=== PATIENT | female | born 2000 | race Caucasian/White ===

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

== ENCOUNTER 2022-01-18 08:16 | Observation (INO) | payer MEDICAID ==
[~2022-01-18] VITALS: Ht 160 cm; Wt 71.9 kg
[2022-01-18] VITALS (11 sets, daily range): BP systolic 108–134; BP diastolic 54–78
[~2022-01-18 08:16] MED LIST changes: +ACET-168 PO; +HYDR-3584 PO
[2022-01-18 10:06] LABS: BASOPHILS # (AUTO) 0.1 10^3/uL (0.0-0.1); BASOPHILS % (AUTO) 0 % (0-10); EOSINOPHILS # (AUTO) 0.1 10^3/uL (0.0-0.3); EOSINOPHILS % (AUTO) 1 % (0-10); HEMATOCRIT 31 % (35-52); HEMOGLOBIN 10.4 g/dL (11.5-16.0); LYMPHOCYTES # (AUTO) 1.7 10^3/uL (1.0-4.0); LYMPHOCYTES % (AUTO) 11 % (12-44); MEAN CORPUSCULAR HEMOGLOBIN 30 pg (25-34); MEAN CORPUSCULAR HGB CONC 34 g/dL (32-36); MEAN CORPUSCULAR VOLUME 89 fL (80-99); MEAN PLATELET VOLUME 11.5 fL (9.0-12.2); MONOCYTES # (AUTO) 0.7 10^3/uL (0.0-1.0); MONOCYTES % (AUTO) 5 % (0-12); NEUTROPHILS # (AUTO) 12.9 10^3/uL (1.8-7.8); NEUTROPHILS % (AUTO) 83 % (42-75); PLATELET COUNT 148 10^3/uL (130-400); WHITE BLOOD COUNT 15.6 10^3/uL (4.3-11.0)
[2022-01-18 10:29] LABS: NEUTROPHILS % (MANUAL) 78 %
[2022-01-18 10:30] LABS: BAND NEUTROPHILS 2 %; BASOPHILS % (MANUAL) 0 %; EOSINOPHILS % (MANUAL) 0 %; LYMPHOCYTES % (MANUAL) 12 %; MONOCYTES % (MANUAL) 8 %
[2022-01-18 10:31] LABS: BILIRUBIN,URINE NEGATIVE (NEGATIVE); CLARITY,URINE CLEAR; COLOR,URINE YELLOW; GLUCOSE, URINE (UA) NEGATIVE (NEGATIVE); KETONES,URINE NEGATIVE (NEGATIVE); LEUKOCYTE ESTERASE ,URINE TRACE (NEGATIVE); NITRITE,URINE NEGATIVE (NEGATIVE); PROTEIN,URINE NEGATIVE (NEGATIVE)
[2022-01-18 10:31] LABS: RBC MORPH NORMAL
[2022-01-18 10:42] LABS: BACTERIA,URINE FEW /HPF; WBC,URINE 0-2 /HPF
[2022-01-18] MEDS ORDERED: BUTORPHANOL INJ 2 MG/ML (STADOL) VIAL IV ONE (11:45)
[2022-01-18] MEDS: D5 LR IV SOLUTION 1,000 ML IV SCH ×3 (12:09→21:16)
--- NOTE | 2022-01-18 16:45 | Diagnostic Imaging Report ---
PROCEDURE: US Renal Bilateral. TECHNIQUE: Multiple real-time grayscale images were obtained over the kidneys in various projections bilaterally. INDICATION: Right-sided abdominal pain. Right kidney measures 11.7 x 4.4 x 4.7 cm and the left kidney measures 11.6 x 5.3 x 4.9 cm. Cortical thickness and echogenicity is normal. There is some mild hydronephrosis of the right kidney but no calculi are seen. Left kidney is unremarkable. Bilateral ureteral jets are visualized. IMPRESSION: Mild right-sided hydronephrosis which could be secondary to hydronephrosis of . No other abnormality is seen. Dictated by: Dictated on workstation # [id number]
--- NOTE | 2022-01-18 16:46 | Diagnostic Imaging Report ---
INDICATION: Evaluate placenta. There is a single live fetus in a cephalic presentation. heart rate was recorded at 165 bpm. Placenta is posterior and appears within normal limits. No previa is identified. Amniotic fluid index is 16.7 cm. IMPRESSION: Unremarkable limited obstetrical ultrasound. Dictated by: Dictated on workstation # [id number]
[2022-01-18] MEDS ORDERED: CITRIC ACID/SOB CIT (BICITRA) 30 ML UDC PO ONE (17:15)
[2022-01-18] MEDS ORDERED: oxyCODONE/APAP 5/325MG (PERCOCET 5) TABLET PO ONE (17:45)
--- NOTE | 2022-01-18 18:49 | History & Physical ---
History and Physical Date Seen by Provider: Jan 18, 2022 Time Seen by Provider: 17:15 This patient is a 21-year-old multigravid female currently at 33 weeks gestation who was admitted with complaint of contractions and right-sided pain. She also complains of low back pain and the pain in the groins. She denies rupture membranes or bleeding. She notes that she has had nausea with no emesis. Patient reports that the pain started early this morning. She has had some pain similar over the last couple days but it got more severe today. She relates that she has had nausea but no emesis. She denies diarrhea or constipation. She denies dysuria or urinary frequency. She had tried Tylenol with no signifi cant relief in her pain. Patient relates that she did not have pain like this with her previous . She reports that the pain is primarily from the umbilicus to the right upper quadrant. She is tender in the right upper quadrant she is tender near the umbilicus and she is tender at the liver edge the tenderness is superficial and easily reproduced on palpation. Patient has no psoas sign. She has no obturator sign. She has no guarding rebound or rigidity. Patient expressed specific concern about appendicitis based on signs symptoms and findings from a friend who apparently had appendicitis. They are specifically requesting general surgery consult and an MRI for evaluation of the appendix. The time that I asked evaluate the patient she does not look to be in acute distress she is tender on palpation in the right upper quadrant. Again there is no psoas sign or obturator sign there is no guarding rebound or rigidity. The patient reports pain primarily along the distribution of the ligamentum teres.. She reports that at times she has pain in the groins extending down to the thighs but that has started since she has been confined to the labor and delivery bed which she reports is uncomfortable as well. That is not correlated with or associated with the right-sided pain but brought the patient in. She was rosalind on admission with a negative swallow evaluation after IV fluids and a single dose of Stadol the contractions have resolved. The Stadol improved her pain somewhat but did not make it resolved. She has been given a dose of Bicitra due to her history of reflux. She reports that that did not stop her pain or affect the pain either. She has been given a Percocet 08/24/2024 and she reports that that has not allowed any improvement in her pain. Again she relates that when she is up her pain is worse when she ambulates to the bathroom her pain is worse when she is back in bed the pain improves. Allergies are none Medications are vitamins Medical social and surgical histories are per her antepartum record HEENT exam is normal Neck is supple no lymphadenopathy no thyromegaly Abdomen is gravid it is soft it is tender in the right upper quadrant and along the distribution of the ligamentum teres from the patient's umbilicus to the li elvin edge. The pain is superficial and is not associated with rebound guarding or rigidity. Pelvic exam has shown a cervix that is not changing over time for the admitting nurse. monitor shows a category 1 heart rate tracing with episodes of occasional contractions that have spaced out since IV hydration and admission. Ultrasound report is reviewed and is consistent with physiologic changes in including a slightly dilated right ureter. We plan to repeat the ultrasound tomorrow to assess for further dilation. Lab work is as follows Laboratory Tests Test 01/18/22 08:30 01/18/22 09:59 Range/Units Urine Color YELLOW Urine Clarity CLEAR Urine pH 7.0 5-9 Urine Specific [place] 1.015 L 1.016-1.022 Urine Protein NEGATIVE NEGATIVE Urine Glucose (UA) NEGATIVE NEGATIVE Urine Ketones NEGATIVE NEGATIVE Urine Nitrite NEGATIVE NEGATIVE Urine Bilirubin NEGATIVE NEGATIVE Urine Urobilinogen 0.2 < = 1.0 MG/DL Urine Leukocyte Esterase TRACE H NEGATIVE Urine RBC (Auto) NEGATIVE NEGATIVE Urine RBC NONE /HPF Urine WBC 0-2 /HPF Urine Squamous Epithelial Cells 5-10 /HPF Urine Crystals NONE /LPF Urine Bacteria FEW H /HPF Urine Casts NONE /LPF Urine Mucus SMALL H /LPF Urine Culture Indicated CULTURE PENDING White Blood Count 15.6 H 4.3-11.0 10^3/uL Red Blood Count 3.47 L 3.80-5.11 10^6/uL Hemoglobin 10.4 L 11.5-16.0 g/dL Hematocrit 31 L 35-52 % Mean Corpuscular Volume 89 80-99 fL Mean Corpuscular Hemoglobin 30 25-34 pg Mean Corpuscular Hemoglobin Concent 34 32-36 g/dL Red Cell Distribution Width 12.3 10.0-14.5 % Platelet Count 148 130-400 10^3/uL Mean Platelet Volume 11.5 9.0-12.2 fL Immature Granulocyte % (Auto) 1 % Neutrophils (%) (Auto) 83 H 42-75 % Lymphocytes (%) (Auto) 11 L 12-44 % Monocytes (%) (Auto) 5 0-12 % Eosinophils (%) (Auto) 1 0-10 % Basophils (%) (Auto) 0 0-10 % Neutrophils # (Auto) 12.9 H 1.8-7.8 10^3/uL Lymphocytes # (Auto) 1.7 1.0-4.0 10^3/uL Monocytes # (Auto) 0.7 0.0-1.0 10^3/uL Eosinophils # (Auto) 0.1 0.0-0.3 10^3/uL Basophils # (Auto) 0.1 0.0-0.1 10^3/uL Immature Granulocyte # (Auto) 0.1 0.0-0.1 10^3/uL Neutrophils % (Manual) 78 % Lymphocytes % (Manual) 12 % Monocytes % (Manual) 8 % Eosinophils % (Manual) 0 % Basophils % (Manual) 0 % Band Neutrophils 2 % Blood Morphology Comment NORMAL White blood cell count is noted to be slightly elevated Assessment and plan Abdominal pain in a patient who presented with contractions. The contractions have resolved however the patient's pain is continued. The pain appears to be related to pressure on the right upper quadrant and potentially along the ligamentum teres. Patient is concerned for the appendix to be infected. She does have a low white count although she reports that she is hungry and would like to eat. She is afebrile she has no guarding rebound or rigidity she has no Rovsing sign . We have discussed her concern with appendicitis and while evaluation is ongoing if that should be the case I would suspect and expect that eventually we will discover whether that is the issue. At this point I do not feel compelled to assume that this is an appendicitis. We will repeat the ultrasound and evaluate the dilated right ureter again in the morning. We will repeat a CBC in the morning. We will obtain a CMP to evaluate liver enzymes as well as creatinine for evaluation of kidney function. In the meantime we will continue with IV fluids and allow patient Percocet 10/325 1 or 2 every 4 hours as needed pain. Patient's monitor strip is reassuring we will change to NST every 8 hours barring any change in patient's perception of movement or of her pain. Will allow patient to eat diet as tolerated if she so desires I will stay aware of the patient through the night and we will see her again at the very least in the morning. I would return promptly for any progression in her symptoms or changes that would suggest further evaluation would be warranted immediately labor and abdominal pain at 32 weeks gestation Allergies and Home Medications Allergies Coded Allergies: No Known Drug Allergies (Unverified , 07/28/20) Patient Home Medication List Home Medication List Reviewed: Yes Acetaminophen (Acetaminophen Extra Strength) 500 Mg Tablet, 1,000 MG PO Q8H PRN for PAIN-MILD (1-4), (Reported) Entered as Reported by: ANA ROSSI on 12/18/212050 Hydroxyzine HCl (Hydroxyzine HCl) Unknown Strength Tablet, Unknown Dose PO for ANXIETY, (Reported) Entered as Reported by: ANA ROSSI on 12/18/212049 Vit W-Ca,Fe,FA(<1 mg) ( Formula) 1 Each Tablet, 1 EACH PO DAILY, (Reported) Entered as Reported by: GEE CHANDLER on 09/19/20 1613 LUBA DEVINE MD Jan 18, 2022 18:49
[2022-01-18] MEDS: oxyCODONE/APAP 10/325MG (PERCOCET 10) TABLET PO PRN (19:04)
[2022-01-19 05:15] VITALS: BP 110/58
[2022-01-19] MEDS: oxyCODONE/APAP 10/325MG (PERCOCET 10) TABLET PO PRN (05:16)
[2022-01-19] MEDS: D5 LR IV SOLUTION 1,000 ML IV SCH (05:16)
[2022-01-19 05:46] LABS: EOSINOPHILS % (AUTO) 2 % (0-10); MEAN PLATELET VOLUME 12.2 fL (9.0-12.2)
[2022-01-19 05:47] LABS: BASOPHILS # (AUTO) 0.1 10^3/uL (0.0-0.1); BASOPHILS % (AUTO) 1 % (0-10); EOSINOPHILS # (AUTO) 0.2 10^3/uL (0.0-0.3); HEMATOCRIT 27 % (35-52); HEMOGLOBIN 9.2 g/dL (11.5-16.0); LYMPHOCYTES % (AUTO) 20 % (12-44); MEAN CORPUSCULAR HEMOGLOBIN 30 pg (25-34); MEAN CORPUSCULAR HGB CONC 34 g/dL (32-36); MEAN CORPUSCULAR VOLUME 90 fL (80-99); MONOCYTES # (AUTO) 0.6 10^3/uL (0.0-1.0); MONOCYTES % (AUTO) 6 % (0-12); NEUTROPHILS # (AUTO) 7.1 10^3/uL (1.8-7.8); NEUTROPHILS % (AUTO) 71 % (42-75); PLATELET COUNT 139 10^3/uL (130-400)
[2022-01-19 06:12] LABS: ALBUMIN 2.8 GM/DL (3.2-4.5); BILIRUBIN,TOTAL 0.3 MG/DL (0.1-1.0); CALCIUM 8.4 MG/DL (8.5-10.1); CREATININE SERUM 0.6 MG/DL (0.60-1.30); POTASSIUM 3.5 MMOL/L (3.6-5.0); TOTAL PROTEIN 5.6 GM/DL (6.4-8.2)
[2022-01-19 07:46] VITALS: BP 104/54
[2022-01-19 08:15] VITALS: BP 112/56
--- NOTE | 2022-01-19 08:15 | Progress Note ---
Standard Progress Note Progress Notes/Assess & Plan Date Seen by a Provider: Jan 19, 2022 Time Seen by a Provider: 08:10 Progress/Assessment & Plan This patient is without complaint. She is ambulating, voiding, tolerating oral intake and has almost complete resolution of her pain. Lab work shows white blood Count has dropped to normal. Her creatinine is normal. Liver enzymes are normal. Hemoglobin is appropriate for . Repeat ultrasound shows stability of the right ureter with its physiologic dilation due to . Patient reports that the abdominal pain that had plagued her on admission has essentially resolved. She has some episodes of the pain with ambulation but that would be expected with pain that is related to which is what this appears to be. Plan will be for discharge home with a limited prescription for Percocet for pain control with follow-up in clinic. Vital Signs Date Time Temp Pulse Resp B/P (MAP) Pulse Ox O2 Delivery O2 Flow Rate FiO2 01/19/22 05:15 36.2 110 18 110/58 (75) 97 Room Air 01/18/22 23:30 36.3 122 18 113/60 (77) 97 Room Air 01/18/22 21:08 122 18 115/56 (75) Room Air 01/18/22 21:00 127 18 108/54 (72) Room Air 01/18/22 20:30 118 18 127/61 (83) Room Air 01/18/22 20:00 133 18 134/63 (86) Room Air 01/18/22 19:30 118 18 121/56 (77) Room Air 01/18/22 15:20 39.5 108 18 120/62 (81) Room Air 01/18/22 12:30 102 18 132/65 (87) 97 Room Air 01/18/22 11:30 37.2 100 18 127/78 (94) 98 Room Air 01/18/22 09:11 36.6 99 20 98 Room Air 01/18/22 09:10 36.6 105 20 100 Room Air I & O 01/19/22 07:00 Intake Total 1000 ml Balance 1000 ml Vital signs are stable. Patient is afebrile. Laboratory Tests Test 01/18/22 08:30 01/18/22 09:59 01/19/22 05:10 Range/Units Urine Color YELLOW Urine Clarity CLEAR Urine pH 7.0 5-9 Urine Specific [place] 1.015 L 1.016-1.022 Urine Protein NEGATIVE NEGATIVE Urine Glucose (UA) NEGATIVE NEGATIVE Urine Ketones NEGATIVE NEGATIVE Urine Nitrite NEGATIVE NEGATIVE Urine Bilirubin NEGATIVE NEGATIVE Urine Urobilinogen 0.2 < = 1.0 MG/DL Urine Leukocyte Esterase TRACE H NEGATIVE Urine RBC (Auto) NEGATIVE NEGATIVE Urine RBC NONE /HPF Urine WBC 0-2 /HPF Urine Squamous Epithelial Cells 5-10 /HPF Urine Crystals NONE /LPF Urine Bacteria FEW H /HPF Urine Casts NONE /LPF Urine Mucus SMALL H /LPF Urine Culture Indicated CULTURE PENDING White Blood Count 15.6 H 10.0 4.3-11.0 10^3/uL Red Blood Count 3.47 L 3.05 L 3.80-5.11 10^6/uL Hemoglobin 10.4 L 9.2 L 11.5-16.0 g/dL Hematocrit 31 L 27 L 35-52 % Mean Corpuscular Volume 89 90 80-99 fL Mean Corpuscular Hemoglobin 30 30 25-34 pg Mean Corpuscular Hemoglobin Concent 34 34 32-36 g/dL Red Cell Distribution Width 12.3 12.4 10.0-14.5 % Platelet Count 148 139 130-400 10^3/uL Mean Platelet Volume 11.5 12.2 9.0-12.2 fL Immature Granulocyte % (Auto) 1 1 % Neutrophils (%) (Auto) 83 H 71 42-75 % Lymphocytes (%) (Auto) 11 L 20 12-44 % Monocytes (%) (Auto) 5 6 0-12 % Eosinophils (%) (Auto) 1 2 0-10 % Basophils (%) (Auto) 0 1 0-10 % Neutrophils # (Auto) 12.9 H 7.1 1.8-7.8 10^3/uL Lymphocytes # (Auto) 1.7 2.0 1.0-4.0 10^3/uL Monocytes # (Auto) 0.7 0.6 0.0-1.0 10^3/uL Eosinophils # (Auto) 0.1 0.2 0.0-0.3 10^3/uL Basophils # (Auto) 0.1 0.1 0.0-0.1 10^3/uL Immature Granulocyte # (Auto) 0.1 0.1 0.0-0.1 10^3/uL Neutrophils % (Manual) 78 % Lymphocytes % (Manual) 12 % Monocytes % (Manual) 8 % Eosinophils % (Manual) 0 % Basophils % (Manual) 0 % Band Neutrophils 2 % Blood Morphology Comment NORMAL Percent Immature Platelet Fraction 9.5 H 0.0-7.6 % Sodium Level 138 135-145 MMOL/L Potassium Level 3.5 L 3.6-5.0 MMOL/L Chloride Level 108 H 98-107 MMOL/L Carbon Dioxide Level 18 L 21-32 MMOL/L Anion Gap 12 5-14 MMOL/L Blood Urea Nitrogen 3 L 7-18 MG/DL Creatinine 0.60 0.60-1.30 MG/DL Estimat Glomerular Filtration Rate 133 BUN/Creatinine Ratio 5 Glucose Level 91 70-105 MG/DL Calcium Level 8.4 L 8.5-10.1 MG/DL Corrected Calcium 9.4 8.5-10.1 MG/DL Total Bilirubin 0.3 0.1-1.0 MG/DL Aspartate Amino Transf (AST/SGOT) 10 5-34 U/L Alanine Aminotransferase (ALT/SGPT) 8 0-55 U/L Alkaline Phosphatase 109 40-136 U/L Total Protein 5.6 L 6.4-8.2 GM/DL Albumin 2.8 L 3.2-4.5 GM/DL Smear Scan Lab work is noted and is normal Physical exam The abdomen is gravid soft nontender nondistended. There is no tenderness on palpation in the right upper quadrant or in the balance of the abdomen. Extremities show no clubbing cyanosis. There is no Homans' sign. Repeat ultrasound initial report is that the right ureter is stable balance of the ultrasound was unremarkable Assessment and plan Hospital day 2 in a patient with labor that has resolved. She had acute abdominal pain that seems to be physiologic in nature as it does not appear to be related to kidney stones/infection/ureteral obstruction beyond the physiologic obstruction of . Patient slept well and had good pain control through the night with resolution of her pain. Plan is for discharge home with follow-up in clinic. Final Diagnosis labor at 32 weeks resolved LUBA DEVINE MD Jan 19, 2022 08:15
[2022-01-19] MEDS ORDERED: OXYC1TAB12 PO (08:17)
--- NOTE | 2022-01-19 08:18 | Discharge Inst-Surgical ---
Discharge Inst-Surgical Depart Medication/Instructions New, Converted or Re-Newed RX: Transmitted to Pharmacy Consults/Follow Up Orders & Referrals Return to clinic for OB follow-up as scheduled Return to clinic for recurrence of pain or signs symptoms indications of labor Activity Activity as Tolerated: Yes Diet Discharge Diet: No Restrictions LUBA DEVINE MD Jan 19, 2022 08:18
[2022-01-19 08:30] VITALS: BP 108/55
--- NOTE | 2022-01-19 08:40 | Diagnostic Imaging Report ---
EXAMINATION: US Retroperitoneal Complete. TECHNIQUE: Multiple Real-time grayscale images were obtained over the kidneys in various projections bilaterally. HISTORY: Right-sided abdominal pain. COMPARISON: 01/18/2022. FINDINGS: The right kidney demonstrates normal echogenicity and cortical thickness. The right kidney measures 11.2 x 6.0 x 5.3 cm. There is mild right hydronephrosis. The left kidney demonstrates normal echogenicity and cortical thickness. The left kidney measures 11.3 x 5.5 x 4.7 cm. No hydronephrosis. The urinary bladder is normal. Bilateral ureteral jets are seen. IMPRESSION: Persistent mild right hydronephrosis. Dictated by: Dictated on workstation # [id number]
[2022-01-19 08:45] VITALS: BP 106/51
[2022-01-19 09:00] VITALS: BP 107/57
== END 2022-01-19 09:50 | disposition home or self-care (01) ==
LOC: LDRP 08:16 → WSo 08:55 → EDSTATUS 15:14 → WSo 18:25 → LDRP 18:25 → UNDOADMOB 18:25 → LDRP 18:25 → UNDODISOB 01-19 10:13 → WSo 01-19 10:15
PROVIDERS: ADMIT Obstetrics & Gynecology; ATTEND Obstetrics & Gynecology
DX: O60.03 Preterm labor without delivery, third trimester (principal); Z3A.32 32 weeks gestation of pregnancy
CPT/HCPCS: 76770 ×2; 76815; 80053; 81000; 85007; 85025; 85027; 87088; G0378; G0379; 36415; 96361; 96374

== ENCOUNTER 2022-01-23 11:51 | Observation (INO) | payer MEDICAID ==
[~2022-01-23] VITALS: Ht 160 cm; Wt 71.3 kg
[2022-01-23] VITALS (7 sets, daily range): BP systolic 108–119; BP diastolic 58–69
[~2022-01-23 11:51] MED LIST changes: +OXYC1TAB12 PO
[2022-01-23 12:22] LABS: BILIRUBIN,URINE NEGATIVE (NEGATIVE); CLARITY,URINE CLOUDY; COLOR,URINE YELLOW; GLUCOSE, URINE (UA) NEGATIVE (NEGATIVE); KETONES,URINE TRACE (NEGATIVE); LEUKOCYTE ESTERASE ,URINE 2+ (NEGATIVE); NITRITE,URINE NEGATIVE (NEGATIVE); PROTEIN,URINE 1+ (NEGATIVE)
[2022-01-23] MEDS ORDERED: FLU QUADRIvalent (6 months+) 60 mcg/0.5 ml 2022-23 (Fluzone) IM ONE (12:30)
[2022-01-23 12:44] LABS: BACTERIA,URINE LARGE /HPF; SQUAMOUS EPITHELIAL CELL,UR >50 /HPF; WBC,URINE 50-100 /HPF
[2022-01-23] MEDS ORDERED: D5 LR IV SOLUTION 1,000 ML IV SCH (13:00)
[2022-01-23] MEDS ORDERED: D5 LR IV SOLUTION 1,000 ML IV ONE (13:10)
[2022-01-23 13:33] LABS: BASOPHILS # (AUTO) 0.1 10^3/uL (0.0-0.1); BASOPHILS % (AUTO) 0 % (0-10); EOSINOPHILS # (AUTO) 0.1 10^3/uL (0.0-0.3); EOSINOPHILS % (AUTO) 1 % (0-10); HEMATOCRIT 31 % (35-52); HEMOGLOBIN 10.3 g/dL (11.5-16.0); LYMPHOCYTES # (AUTO) 1.8 10^3/uL (1.0-4.0); LYMPHOCYTES % (AUTO) 13 % (12-44); MEAN CORPUSCULAR HEMOGLOBIN 30 pg (25-34); MEAN CORPUSCULAR HGB CONC 33 g/dL (32-36); MEAN CORPUSCULAR VOLUME 89 fL (80-99); MONOCYTES # (AUTO) 0.6 10^3/uL (0.0-1.0); MONOCYTES % (AUTO) 4 % (0-12); NEUTROPHILS # (AUTO) 10.8 10^3/uL (1.8-7.8); NEUTROPHILS % (AUTO) 81 % (42-75); PLATELET COUNT 148 10^3/uL (130-400); WHITE BLOOD COUNT 13.3 10^3/uL (4.3-11.0)
[2022-01-23] MEDS ORDERED: ONDANSETRON 4 MG/2 ML (SDV) Z0FRAN IVP ONE (13:45)
[2022-01-23 13:54] LABS: ALBUMIN 3.1 GM/DL (3.2-4.5); BILIRUBIN,TOTAL 0.3 MG/DL (0.1-1.0); CALCIUM 8.6 MG/DL (8.5-10.1); CREATININE SERUM 0.61 MG/DL (0.60-1.30); POTASSIUM 3.9 MMOL/L (3.6-5.0); TOTAL PROTEIN 6.3 GM/DL (6.4-8.2)
[2022-01-23] MEDS: ceFAZolin INJECTION 2,000 MG in NS (IVPB) 50 ML IV SCH ×2 (14:14→20:16)
--- NOTE | 2022-01-23 14:41 | History & Physical ---
History and Physical Date Seen by Provider: Jan 23, 2022 Time Seen by Provider: 14:34 This patient is a 21-year-old 2 para 1 female who presents with complaint of nausea and vomiting x2 days diarrhea x2 days contractions times 1 day. Patient complains of pain across the abdomen and around to the back and into the low back as well as into the right upper quadrant. She denies dysuria or dyschezia.Patient denies rupture membranes or bleeding.She had been seen last week for abdominal pain and elevated white blood cell count and contractions. Her contractions had resolved her white count had normalized and her pain had been controlled with oral medication. There was no specific etiology determined for her pain other than potentially the aches and pains of . Patient reports that the abdominal pain is similar and that it is quite intense worse with ambulation.The pain improves when resting particularly when supine. Allergies are none Medications are vitamins and oxycodone/acetaminophen 10/325 1 p.o. every 4-6 hours as needed pain Medical social and surgical history is are per her antepartum record HEENT exam is normal Neck is supple with no lymphadenopathy no thyromegaly Abdomen is gravid. The abdomen is soft however there is diffuse tenderness on palpation greatest in the right upper quadrant.There is no psoas sided no obturator signThere is no guarding rebound or rigidity Extremities show no clubbing or cyanosis. There is no Homans' sign. Pelvic exam per the admitting nurse shows cervix 1 cm dilated thick and high and posterior monitor shows contractions about every 6 or 8 minutes with a category 1 type a heart rate tracing Lab work is as follows Laboratory Tests Test 01/23/22 12:05 01/23/22 13:20 Range/Units Urine Color YELLOW Urine Clarity CLOUDY Urine pH 6.0 5-9 Urine Specific [place] >=1.030 1.016-1.022 Urine Protein 1+ H NEGATIVE Urine Glucose (UA) NEGATIVE NEGATIVE Urine Ketones TRACE H NEGATIVE Urine Nitrite NEGATIVE NEGATIVE Urine Bilirubin NEGATIVE NEGATIVE Urine Urobilinogen 1.0 < = 1.0 MG/DL Urine Leukocyte Esterase 2+ H NEGATIVE Urine RBC (Auto) NEGATIVE NEGATIVE Urine RBC NONE /HPF Urine WBC 50-100 H /HPF Urine Squamous Epithelial Cells >50 H /HPF Urine Crystals NONE /LPF Urine Bacteria LARGE H /HPF Urine Casts NONE /LPF Urine Mucus NEGATIVE /LPF Urine Culture Indicated YES White Blood Count 13.3 H 4.3-11.0 10^3/uL Red Blood Count 3.49 L 3.80-5.11 10^6/uL Hemoglobin 10.3 L 11.5-16.0 g/dL Hematocrit 31 L 35-52 % Mean Corpuscular Volume 89 80-99 fL Mean Corpuscular Hemoglobin 30 25-34 pg Mean Corpuscular Hemoglobin Concent 33 32-36 g/dL Red Cell Distribution Width 13.2 10.0-14.5 % Platelet Count 148 130-400 10^3/uL Mean Platelet Volume 12.0 9.0-12.2 fL Immature Granulocyte % (Auto) 1 % Neutrophils (%) (Auto) 81 H 42-75 % Lymphocytes (%) (Auto) 13 12-44 % Monocytes (%) (Auto) 4 0-12 % Eosinophils (%) (Auto) 1 0-10 % Basophils (%) (Auto) 0 0-10 % Neutrophils # (Auto) 10.8 H 1.8-7.8 10^3/uL Lymphocytes # (Auto) 1.8 1.0-4.0 10^3/uL Monocytes # (Auto) 0.6 0.0-1.0 10^3/uL Eosinophils # (Auto) 0.1 0.0-0.3 10^3/uL Basophils # (Auto) 0.1 0.0-0.1 10^3/uL Immature Granulocyte # (Auto) 0.1 0.0-0.1 10^3/uL Sodium Level 136 135-145 MMOL/L Potassium Level 3.9 3.6-5.0 MMOL/L Chloride Level 106 98-107 MMOL/L Carbon Dioxide Level 18 L 21-32 MMOL/L Anion Gap 12 5-14 MMOL/L Blood Urea Nitrogen 7 7-18 MG/DL Creatinine 0.61 0.60-1.30 MG/DL Estimat Glomerular Filtration Rate 132 BUN/Creatinine Ratio 11 Glucose Level 70 70-105 MG/DL Calcium Level 8.6 8.5-10.1 MG/DL Corrected Calcium 9.3 8.5-10.1 MG/DL Total Bilirubin 0.3 0.1-1.0 MG/DL Aspartate Amino Transf (AST/SGOT) 14 5-34 U/L Alanine Aminotransferase (ALT/SGPT) 11 0-55 U/L Alkaline Phosphatase 152 H 40-136 U/L Total Protein 6.3 L 6.4-8.2 GM/DL Albumin 3.1 L 3.2-4.5 GM/DL Patient is obviously dehydrated and in addition with 50-100 white blood cells in the urine that would be consistent with a pyelonephritis. A urine culture is pending Assessment and plan This patient presents with labor/contractions. We will hydrate and observe should she make cervical change we would plan to tocolyse. We will go ahead and give betamethasone 12 mg IM for 2 doses as this is the second time this patient has presented with labor. Patient hasMild leukocytosis but fairly significantWhite cells in her urine consistent with and concerning for pyelonephritis. We will start Ancef 2 g every 6 hours empirically.We will follow-up the urine culture This patient's right upper quadrant pain has not yet been fully illuminated. She was scheduled for a ultrasound of her gallbladder to be done on January 25. We will keep that on schedule and try to ensure that that gets accomplished. Patient will be allowed regular diet. We will employ SCDs for DVT prophylaxis. Otherwise we will provide supportive care labor and pyelonephritis at 32 weeks gestation Allergies and Home Medications Allergies Coded Allergies: No Known Drug Allergies (Unverified , 07/28/20) Patient Home Medication List Home Medication List Reviewed: Yes Hydroxyzine HCl (Hydroxyzine HCl) Unknown Strength Tablet, Unknown Dose PO for ANXIETY, (Reported) Entered as Reported by: ANA ROSSI on 12/18/212049 Last Action: Reviewed Oxycodone HCl/Acetaminophen (Percocet 10-325 mg Tablet) 1 Each Tablet, 1 TAB PO Q4H PRN for PAIN-MODERATE Prescribed by: LUBA JOY on 01/19/22 0817 Last Action: Reviewed Vit W-Ca,Fe,FA(<1 mg) ( Formula) 1 Each Tablet, 1 EACH PO DAILY, (Reported) Entered as Reported by: GEE CHANDLER on 09/19/20 1613 Last Action: Reviewed Discontinued Medications Acetaminophen (Acetaminophen Extra Strength) 500 Mg Tablet, 1,000 MG PO Q8H PRN for PAIN-MILD (1-4), (Reported) Discontinued Reason: No Longer Taking Entered as Reported by: ANA ROSSI on 12/18/212050 Last Action: Discontinued LUBA DEVINE MD Jan 23, 2022 14:41
[2022-01-23] MEDS: DICYCLOMINE 10 MG (BENTYL) CAP PO SCH ×2 (15:41→20:16)
[2022-01-23] MEDS: oxyCODONE/APAP 10/325MG (PERCOCET 10) TABLET PO PRN ×2 (15:41→20:16)
[2022-01-23] MEDS: D5 LR IV SOLUTION 1,000 ML IV SCH ×2 (15:45→22:48)
[2022-01-23] MEDS: BETAMETHASONE ACE/NA PHOS 6 MG/ML (CELESTONE SOLUSPAN) IM SCH (17:31)
[2022-01-24] MEDS: ceFAZolin INJECTION 2,000 MG in NS (IVPB) 50 ML IV SCH ×4 (02:04→20:21)
[2022-01-24 02:05] VITALS: BP 112/64
[2022-01-24] MEDS: oxyCODONE/APAP 10/325MG (PERCOCET 10) TABLET PO PRN ×3 (02:07→14:31)
[2022-01-24] MEDS: D5 LR IV SOLUTION 1,000 ML IV SCH ×2 (05:41→12:51)
[2022-01-24] MEDS: DICYCLOMINE 10 MG (BENTYL) CAP PO SCH ×4 (05:41→22:07)
[2022-01-24 08:00] VITALS: BP 124/71
--- NOTE | 2022-01-24 08:08 | Progress Note ---
Standard Progress Note Progress Notes/Assess & Plan Date Seen by a Provider: Jan 24, 2022 Time Seen by a Provider: 08:08 Progress/Assessment & Plan This patient is without complaint. She reports that her contractions initially increased fairly significantly yesterday after admission but then gradually resolved. She denies rupture membranes or bleeding. Her back pain is slightly better her abdominal pain and right upper quadrant pain is better with rest but has not resolved. Her nausea has improved. She does report feeling frequent baby movements Vital Signs Date Time Temp Pulse Resp B/P (MAP) Pulse Ox O2 Delivery O2 Flow Rate FiO2 01/24/22 02:05 37.1 99 18 112/64 (80) Room Air 01/23/22 20:19 36.8 102 18 119/68 (85) 97 Room Air 01/23/22 16:20 35.7 104 18 117/69 (85) 97 Room Air 01/23/22 15:45 35.7 104 18 117/69 (85) 97 Room Air 01/23/22 14:50 101 18 116/65 (82) Room Air 01/23/22 13:20 89 18 108/58 (75) Room Air 01/23/22 12:21 36.1 92 18 96 Room Air 01/23/22 12:20 36.1 90 18 97 Room Air I & O 01/24/22 07:00 Intake Total 3150 ml Balance 3150 ml Vital signs are stable. Patient is afebrile. Abdomen is benign diffusely mildly to moderately tender on palpation more so in the right upper quadrant. There is no guarding rebound or rigidity. The fundus is soft and nontender. Extremities show no clubbing or cyanosis. There is no Homans' sign. Pelvic exam was deferred Assessment and plan 32 weeks with labor that appears to have resolved. Patient has pyelonephritis and is on IV Ancef. She appears to be improving. We will follow-up the urine culture and potentially tomorrow change to an oral antibiotic for discharge home. The patient's abdominal pain and right upper quadrant pain could be referable to the gallbladder. I have started her empirically on Bentyl and we will follow-up with an ultrasound of the gallbladder that was scheduled for tomorrow. Continue IV hydration and supportive care for now LUBA DEVINE MD Jan 24, 2022 08:08
[2022-01-24] MEDS ORDERED: BETAMETHASONE ACE/NA PHOS 6 MG/ML (CELESTONE SOLUSPAN) IM SCH (09:00)
--- NOTE | 2022-01-24 10:20 | Diagnostic Imaging Report ---
PROCEDURE: US Gallbladder. TECHNIQUE: Multiple real-time grayscale images were obtained over the right upper quadrant in various projections. INDICATION: Abdominal pain and back pain. Liver measures approximately 15 cm in length. The portal vein is patent and shows normal direction of flow. The gallbladder contains some sludge. There is no wall thickening or biliary duct dilatation. Pancreas, aorta and IVC are obscured. Overall study is somewhat limited due to patient . Right kidney does show some mild hydronephrosis, likely owing to hydronephrosis of . There is no ascites. IMPRESSION: Gallbladder sludge without evidence of cholelithiasis or acute cholecystitis. Mild hydronephrosis, perhaps hydronephrosis of . Dictated by: Dictated on workstation # [id number]
[2022-01-24] MEDS ORDERED: FLU QUADRIvalent (6 months+) 60 mcg/0.5 ml 2022-23 (Fluzone) IM ONE (11:15)
[2022-01-24 11:40] VITALS: BP 127/60
[2022-01-24 12:20] VITALS: BP 124/71
[2022-01-24] MEDS: BETAMETHASONE ACE/NA PHOS 6 MG/ML (CELESTONE SOLUSPAN) IM SCH (16:58)
[2022-01-24 17:00] VITALS: BP 112/55
[2022-01-24] MEDS ORDERED: D5 LR IV SOLUTION 1,000 ML IV SCH (18:30)
[2022-01-24] MEDS ORDERED: diphenhydrAMINE 25 MG TAB (BENADRYL) PO PRN (22:30)
[2022-01-24 23:00] VITALS: BP 117/63
[2022-01-25] MEDS: ceFAZolin INJECTION 2,000 MG in NS (IVPB) 50 ML IV SCH ×2 (02:24→08:49)
--- NOTE | 2022-01-25 08:05 | Progress Note ---
Standard Progress Note Progress Notes/Assess & Plan Date Seen by a Provider: Jan 25, 2022 Time Seen by a Provider: 08:03 Progress/Assessment & Plan This patient is without complaint. She reports that her contractions initially increased fairly significantly yesterday after admission but then gradually resolved. She denies rupture membranes or bleeding. Her back pain is slightly better her abdominal pain and right upper quadrant pain is better with rest but has not resolved. Her nausea has improved. She does report feeling frequent baby movements Vital Signs Date Time Temp Pulse Resp B/P (MAP) Pulse Ox O2 Delivery O2 Flow Rate FiO2 01/24/22 02:05 37.1 99 18 112/64 (80) Room Air 01/23/22 20:19 36.8 102 18 119/68 (85) 97 Room Air 01/23/22 16:20 35.7 104 18 117/69 (85) 97 Room Air 01/23/22 15:45 35.7 104 18 117/69 (85) 97 Room Air 01/23/22 14:50 101 18 116/65 (82) Room Air 01/23/22 13:20 89 18 108/58 (75) Room Air 01/23/22 12:21 36.1 92 18 96 Room Air 01/23/22 12:20 36.1 90 18 97 Room Air I & O 01/24/22 07:00 Intake Total 3150 ml Balance 3150 ml Vital signs are stable. Patient is afebrile. Abdomen is benign diffusely mildly to moderately tender on palpation more so in the right upper quadrant. There is no guarding rebound or rigidity. The fundus is soft and nontender. Extremities show no clubbing or cyanosis. There is no Homans' sign. Pelvic exam was deferred Assessment and plan 32 weeks with labor that appears to have resolved. Patient has pyelonephritis and is on IV Ancef. She appears to be improving. We will follow-up the urine culture and potentially tomorrow change to an oral antibiotic for discharge home. The patient's abdominal pain and right upper quadrant pain could be referable to the gallbladder. I have started her empirically on Bentyl and we will follow-up with an ultrasound of the gallbladder that was scheduled for tomorrow. Continue IV hydration and supportive care for now November 25, 2021 Patient is without complaint. Her pain has resolved with addition of the Bentyl to her medications. Her back pain is resolved with the IV antibiotics. Culture came back showing lactobacillus species. At this point we can change to an oral antibiotic and continue the Bentyl and allow discharge home. Ultrasound yesterday showed sludge in the gallbladder which explains her and episodic emesis and right upper quadrant pain. Patient denies contractions she does feel baby moving she denies rupture membranes or bleeding. Vital Signs Date Time Temp Pulse Resp B/P (MAP) Pulse Ox O2 Delivery O2 Flow Rate FiO2 01/24/22 23:00 36.5 100 18 117/63 (81) Room Air 01/24/22 23:00 36.5 100 18 117/63 01/24/22 17:00 36.8 87 18 112/55 (74) 96 Room Air 01/24/22 12:20 36.6 86 18 124/71 01/24/22 11:40 36.5 102 18 127/60 (82) 98 Room Air I & O 01/25/22 07:00 Intake Total 2150 ml Balance 2150 ml Vital signs are stable. Patient is afebrile. The abdomen is benign. There is no tenderness in any quadrant. The fundus is soft and nontender as well. Extremity show no clubbing or cyanosis. There is no Homans' sign. Pelvic exam is deferred Assessment and plan 32 weeks with pyelonephritis referable to the lactobacillus species. We will change to Keflex 4 times daily for another week for therapeutic course of antibiotics for the Shawn. In addition patient has gallbladder sludge which explains her right upper quadrant and abdominal tenderness and some of the episodes of nausea as well. She has done well with Bentyl and we will continue that medication through her . She can consider general surgery evaluation for consideration for cholecystectomy after delivery. Patient currently is 32 weeks plus gestation. She has an appointment later this week we will keep in clinic. Plan is for discharge home with follow-up in clinic Final Diagnosis 32 weeks with pyelonephritis and biliary colic due to sludge in the gallbladder LUBA DEVINE MD Jan 25, 2022 08:05
[2022-01-25] MEDS ORDERED: HYDR-700 PO (08:08)
[2022-01-25] MEDS ORDERED: DICY10CA12 PO (08:08)
[2022-01-25] MEDS ORDERED: CEPH500T PO (08:08)
--- NOTE | 2022-01-25 08:09 | Discharge Inst-Surgical ---
Discharge Inst-Surgical Depart Medication/Instructions New, Converted or Re-Newed RX: Transmitted to Pharmacy Consults/Follow Up Patient Instructions: As directed Orders & Referrals Return to clinic as scheduled on November 27/2022 as scheduled Return to clinic for recurrent pain signs symptoms indications of labor or labor Activity Activity as Tolerated: No Diet Discharge Diet: No Restrictions LUBA DEVINE MD Jan 25, 2022 08:09
[2022-01-25] MEDS ORDERED: FAMO20TA5 PO (08:11)
[2022-01-25 08:12] VITALS: BP 118/58
[2022-01-25] MEDS ORDERED: ONDANSETRON 4 MG/2 ML (SDV) Z0FRAN ONE ×2 (08:19→08:21)
[2022-01-25 08:53] VITALS: BP 118/58
[2022-01-25] MEDS: DICYCLOMINE 10 MG (BENTYL) CAP PO SCH (08:53)
[2022-01-25 11:25] VITALS: BP 118/58
== END 2022-01-25 11:15 | disposition home or self-care (01) ==
LOC: LDRP 11:51 → WSo 11:51 → LDRP 13:30 → WSo 13:30 → LDRP 19:10
PROVIDERS: ADMIT Obstetrics & Gynecology; ATTEND Obstetrics & Gynecology
DX: O60.03 Preterm labor without delivery, third trimester (principal); Z3A.32 32 weeks gestation of pregnancy; O23.03 Infections of kidney in pregnancy, third trimester; D72.829 Elevated white blood cell count, unspecified; O99.113 Other diseases of the blood and blood-forming organs and certain disorders involving the immune mechanism complicating pregnancy, third trimester; Z79.899 Other long term (current) drug therapy
CPT/HCPCS: 76705; 80053; 81000; 85025; 87088; 96361 ×3; 96372 ×2; 96374; 96375; 96376 ×3; G0008; G0378; G0379; 36415; 90471; 90686

== ENCOUNTER 2022-02-22 07:00 | Outpatient (CLI) | payer MEDICAID ==
[~2022-02-22] VITALS: Ht 162.5 cm; Wt 71.3 kg
[~2022-02-22 07:00] MED LIST changes: +DICY10CA12 PO; +FAMO20TA5 PO; +HYDR-700 PO
[2022-02-22 07:15] VITALS: BP 120/78
[2022-02-22] MEDS ORDERED: OXYTOCIN PRE-MIX DRIP 500 ML IV SCH (07:15)
[2022-02-22] MEDS ORDERED: D5 LR IV SOLUTION 1,000 ML IV SCH (07:15)
[2022-02-22 07:46] LABS: BASOPHILS # (AUTO) 0.1 10^3/uL (0.0-0.1); BASOPHILS % (AUTO) 1 % (0-10); EOSINOPHILS # (AUTO) 0.2 10^3/uL (0.0-0.3); EOSINOPHILS % (AUTO) 2 % (0-10); HEMATOCRIT 29 % (35-52); HEMOGLOBIN 9.7 g/dL (11.5-16.0); LYMPHOCYTES # (AUTO) 2.9 10^3/uL (1.0-4.0); LYMPHOCYTES % (AUTO) 24 % (12-44); MEAN CORPUSCULAR HEMOGLOBIN 27 pg (25-34); MEAN CORPUSCULAR HGB CONC 33 g/dL (32-36); MEAN CORPUSCULAR VOLUME 83 fL (80-99); MEAN PLATELET VOLUME 12.1 fL (9.0-12.2); MONOCYTES # (AUTO) 0.7 10^3/uL (0.0-1.0); MONOCYTES % (AUTO) 6 % (0-12); NEUTROPHILS # (AUTO) 8.2 10^3/uL (1.8-7.8); NEUTROPHILS % (AUTO) 67 % (42-75); PLATELET COUNT 180 10^3/uL (130-400); WHITE BLOOD COUNT 12.2 10^3/uL (4.3-11.0)
[2022-02-22 08:00] VITALS: BP 123/81
[2022-02-22 08:09] VITALS: BP 123/81
[2022-02-22 08:23] LABS: BILIRUBIN,URINE NEGATIVE (NEGATIVE); CLARITY,URINE CLEAR; COLOR,URINE YELLOW; GLUCOSE, URINE (UA) NEGATIVE (NEGATIVE); KETONES,URINE NEGATIVE (NEGATIVE); LEUKOCYTE ESTERASE ,URINE TRACE (NEGATIVE); NITRITE,URINE NEGATIVE (NEGATIVE); PH,URINE 6.5 (5-9); PROTEIN,URINE 1+ (NEGATIVE)
[2022-02-22 08:33] LABS: BACTERIA,URINE LARGE /HPF; SQUAMOUS EPITHELIAL CELL,UR 25-50 /HPF
[2022-02-22 08:57] VITALS: BP 123/81
--- NOTE | 2022-02-22 10:14 | History & Physical ---
History and Physical Date Seen by Provider: Feb 22, 2022 Time Seen by Provider: 08:00 This patient is a 21-year-old 2 para 1 female whose has been complicated by pyelonephritis for which she is just completed a 14 days course of antibiotics after having been hospitalized for 3 days for IV antibiotics. Patient is further complicated by having gallbladder sludge which has been causing severe biliary colic. Currently is relatively well controlled with Bentyl. Patient was admitted on this date at 37+ weeks gestation for induction of labor due to the complications noted above. On admission pelvic exam showed a cervix 3 cm dilated but presenting part could not be determined. Bedside ultrasound demonstrated a transverse lie with head left and back down. I discussed this with patient patient understands that delivery cannot be accomplished vaginally in this position. The option I presented was to proceed with delivery. Patient expressed desire to wait and see and anticipate baby changing position which will allow vaginal delivery. She continues to have the biliary colic but feels like it is tolerable with the Bentyl and she will continue the Bentyl for that pain. In addition patient will continue Keflex 500 mg twice daily for suppression and potentially prevention of recurrent pyelon ephritis. Patient was given very strict return to clinic instructions and precautions. Patient understands that should she present in labor or with rupture membranes that if the baby is not vertex within the warranted. Allergies are none Medications are vitamins and Keflex and Bentyl Medical social and surgical history is all per the antepartum record HEENT exam is normal Neck is supple no lymphadenopathy no thyromegaly Abdomen is gravid soft nontender nondistended Extremities show no clubbing or cyanosis. Homans' sign. Pelvic exam demonstrated a cervix that was 2 to 3 cm dilated the presenting part was so high was not palpable. Bedside ultrasound demonstrated a transverse back down lie with head left monitor shows a category 1 tracing with only occasional contraction the patient denies feeling Laboratory Tests Test 02/22/22 07:26 02/22/22 08:00 Range/Units White Blood Count 12.2 H 4.3-11.0 10^3/uL Red Blood Count 3.56 L 3.80-5.11 10^6/uL Hemoglobin 9.7 L 11.5-16.0 g/dL Hematocrit 29 L 35-52 % Mean Corpuscular Volume 83 80-99 fL Mean Corpuscular Hemoglobin 27 25-34 pg Mean Corpuscular Hemoglobin Concent 33 32-36 g/dL Red Cell Distribution Width 13.9 10.0-14.5 % Platelet Count 180 130-400 10^3/uL Mean Platelet Volume 12.1 9.0-12.2 fL Immature Granulocyte % (Auto) 1 % Neutrophils (%) (Auto) 67 42-75 % Lymphocytes (%) (Auto) 24 12-44 % Monocytes (%) (Auto) 6 0-12 % Eosinophils (%) (Auto) 2 0-10 % Basophils (%) (Auto) 1 0-10 % Neutrophils # (Auto) 8.2 H 1.8-7.8 10^3/uL Lymphocytes # (Auto) 2.9 1.0-4.0 10^3/uL Monocytes # (Auto) 0.7 0.0-1.0 10^3/uL Eosinophils # (Auto) 0.2 0.0-0.3 10^3/uL Basophils # (Auto) 0.1 0.0-0.1 10^3/uL Immature Granulocyte # (Auto) 0.1 0.0-0.1 10^3/uL Urine Color YELLOW Urine Clarity CLEAR Urine pH 6.5 5-9 Urine Specific [place] >=1.030 1.016-1.022 Urine Protein 1+ H NEGATIVE Urine Glucose (UA) NEGATIVE NEGATIVE Urine Ketones NEGATIVE NEGATIVE Urine Nitrite NEGATIVE NEGATIVE Urine Bilirubin NEGATIVE NEGATIVE Urine Urobilinogen 1.0 < = 1.0 MG/DL Urine Leukocyte Esterase TRACE H NEGATIVE Urine RBC (Auto) NEGATIVE NEGATIVE Urine RBC NONE /HPF Urine WBC 2-5 /HPF Urine Squamous Epithelial Cells 25-50 H /HPF Urine Crystals NONE /LPF Urine Bacteria LARGE H /HPF Urine Casts NONE /LPF Urine Mucus NEGATIVE /LPF Urine Culture Indicated CULTURE PENDING Assessment and plan 37+ weeks gestation with transverse lie. Patient declined proceeding with delivery on this date which was an option considering her complications including the history of pyelonephritis with recurrent urinary tract infections and severe biliary colic. She feels that her symptoms are at least tolerable in her mind when compared to proceeding with so we have allowed discharge home with return to clinic precautions and follow-up instructions. 37 weeks with transverse lie and with biliary colic due to bile sludge and with history of pyelonephritis Allergies and Home Medications Allergies Coded Allergies: No Known Drug Allergies (Unverified , 4/6/21) Patient Home Medication List Home Medication List Reviewed: No Cephalexin (Cephalexin) 500 Mg Tablet, 500 MG PO QID Prescribed by: LUBA JOY on 01/25/22 0808 Dicyclomine HCl (Dicyclomine HCl) 10 Mg Capsule, 10 MG PO ACHS Prescribed by: LUBA JOY on 01/25/22 0808 Famotidine (Famotidine) 20 Mg Tablet, 20 MG PO HS Prescribed by: LUBA JOY on 01/25/22 0811 Hydroxyzine HCl (Hydroxyzine HCl) 25 Mg Tablet, 25 MG PO Q8H Prescribed by: LBUA JOY on 01/25/22 0808 Oxycodone HCl/Acetaminophen (Percocet 10-325 mg Tablet) 1 Each Tablet, 1 TAB PO Q4H PRN for PAIN-MODERATE Prescribed by: LUBA JOY on 01/19/22 0817 Vit W-Ca,Fe,FA(<1 mg) ( Formula) 1 Each Tablet, 1 EACH PO DAILY, (Reported) Entered as Reported by: GEE CHANDLER on 09/19/20 1613 LUBA DEVINE MD Feb 22, 2022 10:13
== END 2022-02-22 08:58 | disposition home or self-care (01) ==
LOC: UNDOADMIN 07:00 → LDRP 07:00 → WSo 07:00 → LDRP 07:00 → EDSTATUS 07:00 → WSo 08:58
PROVIDERS: ATTEND Obstetrics & Gynecology
DX: O26.833 Pregnancy related renal disease, third trimester (principal); O26.893 Other specified pregnancy related conditions, third trimester; K80.50 Calculus of bile duct without cholangitis or cholecystitis without obstruction; Z3A.37 37 weeks gestation of pregnancy
CPT/HCPCS: 36415; 81000; 85025; 86850; 86900; 86901; 87088; 99213

== ENCOUNTER 2022-03-07 15:29 | Inpatient (IN) | payer MEDICAID ==
[~2022-03-07] VITALS: Ht 162.6 cm; Wt 72.2 kg
[2022-03-07 15:52] VITALS: BP 128/86
[2022-03-07] MEDS ORDERED: MINERAL OIL 30 ML UDC TOP PRN (17:00)
[2022-03-07 17:20] VITALS: BP 126/82
[2022-03-07 17:48] LABS: BASOPHILS # (AUTO) 0.1 10^3/uL (0.0-0.1); BASOPHILS % (AUTO) 0 % (0-10); EOSINOPHILS # (AUTO) 0.1 10^3/uL (0.0-0.3); EOSINOPHILS % (AUTO) 0 % (0-10); HEMATOCRIT 31 % (35-52); LYMPHOCYTES # (AUTO) 2.2 10^3/uL (1.0-4.0); LYMPHOCYTES % (AUTO) 15 % (12-44); MEAN CORPUSCULAR HEMOGLOBIN 26 pg (25-34); MEAN CORPUSCULAR HGB CONC 33 g/dL (32-36); MEAN CORPUSCULAR VOLUME 80 fL (80-99); MEAN PLATELET VOLUME 11.6 fL (9.0-12.2); MONOCYTES # (AUTO) 0.6 10^3/uL (0.0-1.0); MONOCYTES % (AUTO) 4 % (0-12); NEUTROPHILS % (AUTO) 80 % (42-75); PLATELET COUNT 176 10^3/uL (130-400)
[2022-03-07 18:07] LABS: LYMPHOCYTES % (MANUAL) 7 %; MONOCYTES % (MANUAL) 8 %; NEUTROPHILS % (MANUAL) 85 %; POLYCHROMASIA SLIGHT
[2022-03-07 19:45] VITALS: BP 120/56
[2022-03-08] VITALS (54 sets, daily range): BP systolic 108–151; BP diastolic 56–95
[2022-03-08] MEDS: D5 LR IV SOLUTION 1,000 ML IV SCH ×2 (01:52→09:39)
--- NOTE | 2022-03-08 07:54 | History & Physical ---
History and Physical Date Seen by Provider: Mar 08, 2022 Time Seen by Provider: 07:51 This patient is a 21-year-old 2 para 1 female currently at 39+ weeks gestation. She was admitted last evening with complaint of contractions pain and pressure. She was dilated to 4 cm. She was observed through the night and this morning she is now 5 cm plus. Vertex presentation intact membranes. Patient is GBS culture after 35 weeks gestation was negative. has been complicated by gallbladder disease for which she takes Bentyl with satisfactory result. She is also was hospitalized during this with pyelonephritis and had been on therapeutic antibiotics followed by prophylactic antibiotics. She has run out of antibiotics as she is no longer on that medication. Patient denies discharge or bleeding. She has no bowel or bladder complaints currently. Allergies are none Medications are vitamins and Bentyl Medical social and surgical histories are per the antepartum record HEENT exam is normal Neck is supple with no lymphadenopathy no thyromegaly Abdomen is gravid soft nontender nondistended Extremities show no clubbing or cyanosis. There is no Homans' sign. Pelvic exam shows a cervix over 5 cm dilated bulging bag vertex presentation amniotomy was performed with release of clear fluid. The station is -1 to -2 Laboratory Tests Test 03/07/22 17:25 Range/Units White Blood Count 15.0 H 4.3-11.0 10^3/uL Red Blood Count 3.81 3.80-5.11 10^6/uL Hemoglobin 10.0 L 11.5-16.0 g/dL Hematocrit 31 L 35-52 % Mean Corpuscular Volume 80 80-99 fL Mean Corpuscular Hemoglobin 26 25-34 pg Mean Corpuscular Hemoglobin Concent 33 32-36 g/dL Red Cell Distribution Width 14.5 10.0-14.5 % Platelet Count 176 130-400 10^3/uL Mean Platelet Volume 11.6 9.0-12.2 fL Immature Granulocyte % (Auto) 1 % Neutrophils (%) (Auto) 80 H 42-75 % Lymphocytes (%) (Auto) 15 12-44 % Monocytes (%) (Auto) 4 0-12 % Eosinophils (%) (Auto) 0 0-10 % Basophils (%) (Auto) 0 0-10 % Neutrophils # (Auto) 12.0 H 1.8-7.8 10^3/uL Lymphocytes # (Auto) 2.2 1.0-4.0 10^3/uL Monocytes # (Auto) 0.6 0.0-1.0 10^3/uL Eosinophils # (Auto) 0.1 0.0-0.3 10^3/uL Basophils # (Auto) 0.1 0.0-0.1 10^3/uL Immature Granulocyte # (Auto) 0.1 0.0-0.1 10^3/uL Neutrophils % (Manual) 85 % Lymphocytes % (Manual) 7 % Monocytes % (Manual) 8 % Polychromasia SLIGHT Vital Signs Date Time Temp Pulse Resp B/P (MAP) Pulse Ox O2 Delivery O2 Flow Rate FiO2 03/08/22 04:18 36.1 74 20 111/56 (74) 97 Room Air 03/08/22 00:33 35.9 93 18 119/70 (86) 98 Room Air 03/07/22 19:45 35.8 117 20 120/56 (77) 95 Room Air 03/07/22 17:20 36.4 116 20 126/82 (97) 97 Room Air 03/07/22 15:52 36.4 109 20 128/86 (100) 97 Room Air Assessment and plan Term at 39+ weeks gestation in labor. Amniotomy has been performed. We will observe for progress if needed we would augment with Pitocin. Patient will be allowed epidural if desired. We anticipate a vaginal delivery 39-week gestation in labor Allergies and Home Medications Allergies Coded Allergies: No Known Drug Allergies (Unverified , 07/28/20) Patient Home Medication List Home Medication List Reviewed: Yes Cephalexin (Cephalexin) 500 Mg Tablet, 500 MG PO QID Prescribed by: LUBA JOY on 01/25/22 0808 Dicyclomine HCl (Dicyclomine HCl) 10 Mg Capsule, 10 MG PO ACHS Prescribed by: LUBA JOY on 01/25/22 0808 Famotidine (Famotidine) 20 Mg Tablet, 20 MG PO HS Prescribed by: LUBA JOY on 01/25/22 0811 Hydroxyzine HCl (Hydroxyzine HCl) 25 Mg Tablet, 25 MG PO Q8H Prescribed by: LUBA JOY on 01/25/22 0808 Oxycodone HCl/Acetaminophen (Percocet 10-325 mg Tablet) 1 Each Tablet, 1 TAB PO Q4H PRN for PAIN-MODERATE Prescribed by: LUBA JOY on 01/19/22 0817 Vit W-Ca,Fe,FA(<1 mg) ( Formula) 1 Each Tablet, 1 EACH PO DAILY, (Reported) Entered as Reported by: GEE CHANDLER on 09/19/20 1613 LUBA DEVINE MD Mar 08, 2022 07:54
[2022-03-08] MEDS ORDERED: IBUP-1780 PO (08:01)
[2022-03-08] MEDS ORDERED: DOCU-143 PO (08:01)
[2022-03-08] MEDS ORDERED: OXYC-199 PO (08:01)
--- NOTE | 2022-03-08 08:02 | Discharge Inst-Surgical ---
Discharge Inst-Surgical Depart Medication/Instructions New, Converted or Re-Newed RX: Transmitted to Pharmacy Consults/Follow Up Orders & Referrals Follow Up Appt: Call to make follow up appt. for patient in 4 weeks. Activity Per routine post vaginal delivery instructions. Diet as tolerated Patient may shower or tub bathe as desired. Activity Activity as Tolerated: No Diet Discharge Diet: No Restrictions LUBA DEVINE MD Mar 08, 2022 08:02
[2022-03-08] MEDS ORDERED: OXYTOCIN PRE-MIX DRIP 500 ML IV SCH ×2 (08:45→14:15)
[2022-03-08] MEDS ORDERED: fentaNYL 2 mcg/ml BUPIVA 0.125 100 ML ONE (09:03)
[2022-03-08] MEDS ORDERED: fentaNYL INJ 100 MCG/2 ML AMP ONE (10:12)
[2022-03-08] MEDS ORDERED: BUPIVACAINE 0.25% 30 ML (SENSORCAINE) VIAL ONE (10:12)
[2022-03-08] MEDS ORDERED: fentaNYL 2 mcg/ml BUPIVA 0.125 100 ML IV SCH (10:45)
[2022-03-08] MEDS ORDERED: CATHETER FLUSH 10 ML SYR IV PRN (10:45)
[2022-03-08] MEDS ORDERED: NALOXONE 0.4 MG/ML 1 ML (NARCAN) VIAL IV PRN (10:45)
[2022-03-08] MEDS ORDERED: LACTATED RINGERS 1,000 ML IV ONE (10:45)
[2022-03-08] MEDS ORDERED: TETANUS,DIPTH,PERTUSS P/F (BOOSTRIX) 0.5 ML VIAL IM ONE (14:15)
[2022-03-08] MEDS ORDERED: BENZOCAINE/MENTHOL (DERMOPLAST) 56 ML CAN TP PRN (14:15)
[2022-03-08] MEDS ORDERED: oxyCODONE/APAP 5/325MG (PERCOCET 5) TABLET PO PRN (14:15)
[2022-03-08] MEDS ORDERED: ONDANSETRON 4 MG/2 ML (SDV) Z0FRAN IVP PRN (14:15)
[2022-03-08] MEDS: KETOROLAC 30 MG/ML VIAL IV SCH ×2 (15:24→21:08)
[2022-03-08] MEDS: DOCUSATE SODIUM 100 MG (COLACE) CAP PO SCH (21:07)
--- NOTE | 2022-03-08 22:49 | OPERATIVE REPORT ---
DATE OF SERVICE: 03/08/2022 DELIVERY NOTE The patient delivered by term spontaneous vaginal delivery of viable male with Apgars of 9 and 9 at 1 and 5 minutes respectively, weight of 8 pounds 13 ounces. time of 12:29. Cord blood pH is pending. The was delivered over an intact perineum under epidural analgesia. A nuchal cord was easily released. The infant was bulb suctioned on delivery of the head and again on completion of delivery. The umbilical cord was doubly clamped when pulseless. Father cut the cord. The baby was passed to mom's abdomen. The placenta delivered spontaneously Sainz after cord bloods were obtained. This placenta was sent to pathology for permanent section. The cervix, vagina, rectum and perineum were examined and found intact. Sponge and needle counts were correct after completion of the delivery. Blood loss was around 250 mL. The patient tolerated the delivery well and remained in the LDR for recovery. The baby remained with mom. Job ID: [id number] DocumentID: [id number] Dictated Date: 03/08/2022 12:56:20 Camera Technician Date: 03/08/2022 22:47:00 Dictated By: LUBA DEVINE MD
[2022-03-09 00:30] VITALS: BP 117/70
[2022-03-09 03:41] VITALS: BP 109/61
[2022-03-09] MEDS: CATHETER FLUSH 10 ML SYR IV SCH ×2 (03:41→05:18)
[2022-03-09] MEDS: KETOROLAC 30 MG/ML VIAL IV SCH (03:41)
[2022-03-09 08:55] VITALS: BP 121/56
[2022-03-09] MEDS: DOCUSATE SODIUM 100 MG (COLACE) CAP PO SCH (08:56)
[2022-03-09] MEDS: IBUPROFEN 800 MG (MOTRIN) TAB PO SCH ×2 (08:56→15:12)
--- NOTE | 2022-03-09 10:04 | Anesthesia-Regional Post-Op ---
Regional Patient Condition Mental Status: Alert, Oriented x3 Circulation: Same as Pre-Op Headache: Absent Sensation: Full Recovery Motor Block: Absent Post Op Complications Complications None Follow Up Care/Instructions Patient Instructions None needed. Anesthesia/Patient Condition Patient is doing well, no complaints, stable vital signs, no apparent adverse anesthesia problems. No complications reported per nursing. HARISH MULLER CRNA Mar 09, 2022 10:04
[2022-03-09 12:00] VITALS: BP 125/71
[2022-03-09] MEDS ORDERED: IBUPROFEN 800 MG (MOTRIN) TAB PO SCH (14:15)
[2022-03-09 17:20] VITALS: BP 133/65
[2022-03-09 17:50] VITALS: BP 133/65
== END 2022-03-09 17:50 | disposition home or self-care (01) | DRG 807 ==
LOC: WSo 15:29 → LDRP 15:29 → WSo 16:05 → LDRP 16:05
PROVIDERS: ADMIT Obstetrics & Gynecology; ATTEND Obstetrics & Gynecology
PROC: 10E0XZZ Delivery of Products of Conception, External Approach (ICD-10-PCS; principal; 2022-03-08)
DX: O99.613 Diseases of the digestive system complicating pregnancy, third trimester (principal); Z37.0 Single live birth; K82.9 Disease of gallbladder, unspecified; O69.81X0 Labor and delivery complicated by cord around neck, without compression, not applicable or unspecified; Z3A.39 39 weeks gestation of pregnancy
CPT/HCPCS: 36415; 83033; 85007; 85027; 86850; 86900; 86901; 99212

== ENCOUNTER 2023-03-22 05:28 | Outpatient (CLI) | payer MEDICAID ==
[~2023-03-22] VITALS: Ht 160 cm; Wt 65.7 kg
[~2023-03-22 05:28] MED LIST changes: +DICY-11 PO; -DICY10CA12 PO; +OXYC-199 PO
[2023-03-22] MEDS ORDERED: ETON1VAG8 VG (14:34)
== END 2023-03-22 14:54 | disposition home or self-care (01) ==
LOC: PREOP 05:28
PROVIDERS: ATTEND Surgery
DX: Z01.818 Encounter for other preprocedural examination (principal)